=== PATIENT | female | born 1970 ===

== ENCOUNTER 2025-07-01 08:00 | Outpatient (CLI) | payer OTHER ==
[2025-07-01 09:39] LABS: BASO % 0.7 % (0.1-1.2); EOS # 0.07 (0.04-0.54); EOS % 1.2 % (0.7-7.0); LYMPH # 1.69 (1.18-3.74); LYMPH % 29.4 % (19.3-53.1); MEAN PLATELET VOLUME 8.80 fl (9.4-12.4); MONO # 0.34 (0.24-0.82); MONO % 5.9 % (4.7-12.5); NEUT # 3.58 (1.56-6.13); NEUT % 62.5 % (34.0-71.1); RED CELL DISTRIBUTION WIDTH 13.5 % (11.6-14.4)
[2025-07-01 09:52] LABS: URINE APPEARANCE Cloudy; URINE BILIRRUBIN Negative (NEGATIVE); URINE BLOOD Negative; URINE COLOR Yellow; URINE GLUCOSE Negative (NEGATIVE); URINE KETONE Negative (NEGATIVE); URINE LEUKOCYTE Trace; URINE NITRATE Negative; URINE PROTEIN Negative (NEGATIVE); URINE UROBILINOGEN 0.2 E.U./dl
[2025-07-01 10:00] LABS: URINE BACTERIA 1832.3 uL (0.0-1933); URINE EPITHELIAL CELLS 95.2 uL (0.0-38.8); URINE RBC 3.2 uL (0.0-20.8); URINE WBC 68.4 uL (0.0-23.2)
[2025-07-01 10:08] LABS: INR 1.04
[2025-07-01 10:11] LABS: URINE CAST 0.73 uL (0.0-1.40); URINE CRYSTALS FEW /HPF; URINE MUCUS HEAVY
[2025-07-01 10:33] LABS: ALT/SGPT 18.0 U/L (12-78); AST/SGOT 9.0 U/L (15-37); BILIRUBIN TOTAL 0.34 mg/dL (0.3-1.2); BUN CREA RATIO 16.0 (7.0-25.0); CREATININE SERUM 0.62 mg/dL (0.55-1.02); GFR 100.31; GLOBULINA 4.3 G/DL (2.4-3.5); GLUCOSE FASTING 94.0 mg/dL (65-100); OSMOLALITY SERUM 286.0 MOSM/KG (275-295)
== END 2025-07-01 08:10 | disposition home or self-care (01) ==
LOC: RAD 08:00 → ADM 08:30 → CIR.AMB 07-04 08:30 → EDSTATUS 07-04 08:30 → CIR.AMB 07-04 11:15
PROVIDERS: ATTEND Surgery
DX: K80.20 Calculus of gallbladder without cholecystitis without obstruction (principal)